=== PATIENT | male | born 1945 | race Caucasian/White ===

== ENCOUNTER 2022-07-10 14:20 | Emergency (ER) | payer OTHER ==
[~2022-07-10] VITALS: Ht 165.1 cm; Wt 64.4 kg
--- NOTE | 2022-07-10 14:29 | NUR ---
Patient to ER bed 07 to gown for evaluation. Side rails up. Report given to Magen WOODY.
--- NOTE | 2022-07-10 14:30 | NUR ---
RECEIVED PT FROM ANNALISE KHANNA. PT BIBA ACLS FOR A SYNCOPE EPISODE DURING P/T. PT IS AAOX4. ON RA. HAS C/O NAUSEA. NORMAL S1S2 NOTED. DISTAL PULSES NORMAL. SKIN WARM. PT HAS 4/10 PAIN TO L FOOT DUE TO PAST INJURY. LEG ELEVATED. PT HAS IV CATH S/L 20G. SITE WNL.
[2022-07-10 14:32] VITALS: BP_SYST 138
--- NOTE | 2022-07-10 14:35 | NUR ---
DR. NIEVES AT BEDSIDE TO ASSESS PT.
[2022-07-10] MEDS ORDERED: METOCLOPRAMIDE HCL 10 MG/2 ML VIAL IVP ONE (14:45)
[2022-07-10] MEDS ORDERED: MECLIZINE HCL 25 MG TABLET (ANITVERT) PO ONE (14:45)
--- NOTE | 2022-07-10 14:58 | NUR ---
PT TAKEN FOR CT SCAN AT THIS TIME.
--- NOTE | 2022-07-10 15:02 | NUR ---
REGLAN IVP GIVEN, MECLIZINE PO GIVEN.
[2022-07-10 15:32] LABS: BASOPHILS % (AUTO) 0.4 % (0.0-2.0); EOSINOPHILS # (AUTO) 0.1 K/uL (0.0-0.4); EOSINOPHILS % (AUTO) 1.6 % (0.0-4.0); HEMATOCRIT 37.7 % (36-54); HEMOGLOBIN 12.8 g/dL (14.0-18.0); LYMPHOCYTES # (AUTO) 1.2 K/uL (1.0-5.5); MEAN CORPUSCULAR HEMOGLOBIN 33 pg (27-31); MEAN CORPUSCULAR HGB CONC 34 % (32-36); MEAN CORPUSCULAR VOLUME 98 fL (79.0-98.0); MONOCYTES # (AUTO) 0.7 K/uL (0.0-1.0); MONOCYTES % (AUTO) 9.5 % (1.7-9.3); NEUTROPHILS % (AUTO) 71.5 % (40.0-70.0); PLATELET COUNT (AUTO) 163 K/uL (130-430); RED BLOOD CELL COUNT(AUTO) 3.85 MIL/uL (4.2-6.2); RED CELL DISTRIBUTION WIDTH 13.3 % (9.0-15.0); WHITE BLOOD COUNT (AUTO) 7.1 K/uL (4.8-10.8)
[2022-07-10 15:35] LABS: ANION GAP 11 (5-15); CALCIUM 9.1 mg/dL (8.4-11.0); CHLORIDE 104 mmol/L (98-107); CREATININE 1.72 mg/dL (0.55-1.30); GLUCOSE 131 mg/dL (70-99); UREA NITROGEN, BLOOD 18 mg/dL (8-21)
[2022-07-10 15:38] LABS: INR 1.1 (0.80-1.20); PROTHROMBIN TIME 10.8 SECS (9.5-12.5)
[2022-07-10 15:42] LABS: ALANINE AMINOTRANSFERASE 25 U/L (12-78); ALBUMIN 3.7 g/dL (3.4-4.8); ASPARTATE AMINOTRANSFERASE 18 U/L (10-37); TOTAL BILIRUBIN 0.7 mg/dL (0.0-1.0)
[2022-07-10] MEDS ORDERED: MECL-261 PO (16:33)
--- NOTE | 2022-07-10 16:50 | NUR ---
DR. NIEVES AT BEDSIDE TO DISCUSS POC.
[2022-07-10 17:09] VITALS: BP_SYST 115
--- NOTE | 2022-07-10 17:09 | NUR ---
Patient given written and verbal discharge instructions and verbalizes understanding. ER MD discussed with patient the results and treatment provided. Patient in stable condition. ID arm band removed. IV catheter removed intact and dressing applied, no active bleeding. Rx of MECLIZINE given. Patient educated on pain management and to follow up with PMD. Pain Scale 0/10. Opportunity for questions provided and answered. Medication side effect fact sheet provided.
== END 2022-07-10 17:09 | disposition home or self-care (01) ==
LOC: SED 14:20
DX: R55 Syncope and collapse (principal); R42 Dizziness and giddiness; R11.0 Nausea; Z79.899 Other long term (current) drug therapy
CPT/HCPCS: 99285; 96374; 70450; 71045; 80053; 82550; 82962; 85025; 85610; 85730; 84484; 36415; 93005; 76376; J8597; J2765